=== PATIENT | female | born 1965 | race Caucasian/White ===

== ENCOUNTER 2019-02-08 16:03 | Outpatient (CLI) | payer BC ==
--- NOTE | 2019-02-09 08:40 | Mammography Report ---
Reason: ENCOUNTER FOR SCREENING MAMMOGRAM FOR MALIGNANT NE Procedure Date: 02/08/2019 Accession Number: [id number] / [id number] Procedure: LOVE - Screening Mammo w/[facility] CPT Code: FULL RESULT: EXAM: Screening Mammo w/[facility] DATE: 02/08/2019 4:30 PM CLINICAL HISTORY: Screening encounter. History of late childbearing. TECHNIQUE: (B) - Bilateral CC and MLO views were obtained. COMPARISON: 11/21/2015 through 03/19/2009. PARENCHYMAL PATTERN: (A) - The breast(s) demonstrate(s) scattered fibroglandular densities. FINDINGS: In the left breast 5.5 cm from the nipple is a isodense well-circumscribed 1.1 cm nodule on cc image 35 and MLO image 35, no associated architectural distortion or calcifications. In the right breast is a similar appearing 0.6 cm well-circumscribed isodense finding 4.9 cm from the nipple on CC image 29 and MLO image 36, again, without architectural distortion or associated calcifications. Both of these findings potentially represent cysts but are uncharacterized at this time. This requires right breast and left breast focused ultrasound for clarification. There are no suspicious calcifications, or areas of distortion. IMPRESSION: Incomplete examination. BI-RADS category 0. RECOMMENDATION: (ADDUS) - Targeted ultrasound recommended. Bilateral breast ultrasound as described. BI-RADS CATEGORY: (0) - Incomplete Examination - need additional evaluation. STANDARD QUALIFYING STATEMENTS: 1. This examination was not reviewed with the aid of Computer-Aided Detection (CAD). 2. A negative or benign imaging report should not preclude biopsy if clinically suspicious findings are present. 3. Dense breasts may obscure an underlying neoplasm. 4. This examination was reviewed with the aid of 3D breast imaging (tomosynthesis).
== END 2019-02-08 16:04 | disposition home or self-care (01) ==
LOC: DI 16:03
PROVIDERS: ATTEND Registered Nurse
DX: Z12.31 Encounter for screening mammogram for malignant neoplasm of breast (principal); R92.8 Other abnormal and inconclusive findings on diagnostic imaging of breast
CPT/HCPCS: 77063; 77067